=== PATIENT | female | born 1985 | race African-American/Black ===

== ENCOUNTER 2016-10-13 10:59 | Emergency (ER) | payer SELFPAY ==
[2016-06-15 14:35] VITALS: BP 148/93
[~2016-10-13 10:59] MED LIST: ACET-704 PO; TRAM-29 PO
--- NOTE | 2016-10-13 12:12 | RAD ---
PROCEDURE Left shoulder radiographs. HISTORY Fall previous day, left shoulder pain. TECHNIQUE AP internal rotation, AP external rotation, and scapular Y-view of the left shoulder. COMPARISON None. FINDINGS No acute fracture or dislocation is identified. IMPRESSION No acute osseous traumatic injury identified. Electronically signed by: Phil Bean MD (Oct 13, 2016 12:11:56)
--- NOTE | 2016-10-13 12:24 | RAD ---
PROCEDURE Right wrist radiographs. HISTORY Fall previous day, right wrist pain. COMPARISON None. FINDINGS PA, lateral, and oblique views of the right wrist. No acute fracture or dislocation is identified. No focal soft tissue swelling is seen. IMPRESSION No acute osseous traumatic injury identified. Electronically signed by: Phil Bean MD (Oct 13, 2016 12:24:15)
--- NOTE | 2016-10-13 12:27 | RAD ---
PROCEDURE Bilateral knee radiographs. HISTORY Fall previous day. Pain. COMPARISON None. FINDINGS AP, lateral, and oblique views of the left knee. No joint effusion is identified. No acute fracture or dislocation is seen. AP, lateral, and oblique views of the right knee. No joint effusion is seen. No acute fracture or dislocation is identified. Minimal tricompartment degeneration is seen. Portions of femoral fixation jace are seen with presence of 2 distal interlocking screws. IMPRESSION No acute osseous traumatic injury identified in either knee. Electronically signed by: Phil Bean MD (Oct 13, 2016 12:26:07)
== END 2016-10-13 12:46 | disposition home or self-care (01) ==
LOC: ER 10:59
DX: M25.512 Pain in left shoulder (principal); M25.531 Pain in right wrist; M25.562 Pain in left knee; M25.561 Pain in right knee; W01.0XXA Fall on same level from slipping, tripping and stumbling without subsequent striking against object, initial encounter; Y93.89 Activity, other specified; Y92.89 Other specified places as the place of occurrence of the external cause; Y99.8 Other external cause status
CPT/HCPCS: 73030; 73110; 73562; 99284

== ENCOUNTER 2016-11-11 17:00 | Emergency (ER) | payer SELFPAY ==
[~2016-11-11] VITALS: Ht 170.2 cm; Wt 78.0 kg
[2016-11-11 17:20] VITALS: BP 135/94
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
[2016-11-11] MEDS ORDERED: CYCL10TA2 PO (18:24)
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
== END 2016-11-11 18:30 | disposition home or self-care (01) ==
LOC: ER 17:00
DX: S39.012A Strain of muscle, fascia and tendon of lower back, initial encounter (principal); V43.62XA Car passenger injured in collision with other type car in traffic accident, initial encounter; Y93.89 Activity, other specified; Y92.89 Other specified places as the place of occurrence of the external cause; Y99.8 Other external cause status
CPT/HCPCS: 72072; 72100; 81025; 99284